=== PATIENT | female | born 1960 | race Caucasian/White ===

== ENCOUNTER 2019-06-30 09:04 | Emergency (ER) | payer OTHER ==
[2019-06-30 09:30] VITALS: BP 139/72
--- NOTE | 2019-06-30 10:10 | UC ---
Upper Extremity HPI - HPI Summary HPI Summary: 58-year-old woman comes in with a chief complaint of right elbow bursitis. Patient's had several days of her right elbow being irritated now it's swollen with redness. It hurts at rest but it's worse with palpation. Fevers or chills feels well otherwise. Patient's had this happen before but use the swelling is not as big. - History of Current Complaint Chief Complaint: UCUpperExtremity Stated Complaint: RT ELBOW PAIN Time Seen by Provider: 06/30/19 09:55 Pain Intensity: 9 - Allergies/Home Medications Allergies/Adverse Reactions: Allergies Allergy/AdvReac Type Severity Reaction Status Date / Time No Known Allergies Allergy Verified 06/30/19 09:28 Home Medications: Home Medications Atenolol TAB* [Tenormin TAB* 25 MG] 12.5 mg PO DAILY 06/30/19 [History Confirmed 06/30/19] DULoxetine DR CAP* [Cymbalta CAP*] 60 mg PO DAILY 06/30/19 [History Confirmed ] Ibuprofen TAB* [Motrin TAB* 400 MG] 400 mg PO Q6H PRN 06/30/19 [History Confirmed 06/30/19] Loratadine [Claritin 10 MG CAP] 10 mg PO DAILY 06/30/19 [History Confirmed 06/29] Omeprazole 20 mg PO BID 06/30/19 [History Confirmed 06/30/19] Pravastatin Sodium 10 mg PO EVERY OTHER DAY 06/30/19 [History Confirmed 06/30/19 ] Topiramate TAB(*) [Topamax 100 mg tab] 100 mg PO BEDTIME 06/30/19 [History Confirmed 06/30/19] Zolpidem TAB* [Ambien TAB*] 10 mg PO BEDTIME 06/30/19 [History Confirmed ] PMH/Surg Hx/FS Hx/Imm Hx Previously Healthy: Yes Endocrine History: Dyslipidemia Cardiovascular History: Hypertension GI/ History: Gastroesophageal Reflux - Surgical History Surgical History: Yes Surgery Procedure, Year, and Place: wisdom teeth. bilateral knee arthroscopy - Family History Known Family History: Positive: Non-Contributory - Social History Alcohol Use: None Substance Use Type: None Smoking Status (MU): Former Smoker When Did the Patient Quit Smoking/Using Tobacco: 2011 Review of Systems All Other Systems Reviewed And Are Negative: Yes Constitutional: Positive: Negative Skin: Positive: Other - SEE HPI Eyes: Positive: Negative ENT: Positive: Negative Respiratory: Positive: Negative Cardiovascular: Positive: Negative Gastrointestinal: Positive: Negative Motor: Positive: Negative Neurovascular: Positive: Negative Musculoskeletal: Positive: Negative Neurological/Mental Status: Positive: Negative Psychological: Positive: Negative Is Patient Immunocompromised?: No Physical Exam Triage Information Reviewed: Yes Appearance: Well-Appearing, No Pain Distress, Well-Nourished Vital Signs: Initial Vital Signs Temp 97.3 F 06/30/19 09:23 Pulse 62 06/30/19 09:23 Resp 17 06/30/19 09:23 BP 139/72 06/30/19 09:23 Pulse Ox 99 06/30/19 09:23 Vital Signs Reviewed: Yes Eye Exam: Normal Eyes: Positive: Conjunctiva Clear Neck: Positive: Supple Respiratory: Positive: No respiratory distress Musculoskeletal: Positive: Strength Intact, ROM Intact Neurological: Positive: Alert, Muscle Tone Normal Psychological: Positive: Age Appropriate Behavior Skin: Positive: Other - Right elbow bursa is swollen. It's erythematous over the bursa. No streaking. Upper Extremity Course/Dx - Course Course Of Treatment: Symptoms are consistent with right elbow bursitis. There is erythema over it's therefore at this time no plan to drain the bursa. We'll treat with Keflex. [facility] I wrote a hard copy prescription for Keflex 500 mg by mouth 4 times a day. Patient's, follow-up either with [facility] or [facility]opedics if not improved. She should get reevaluated sooner if worse or any questions or concerns. - Differential Dx/Diagnosis Provider Diagnosis: Bursitis of right elbow Discharge ED - Sign-Out/Discharge Documenting (check all that apply): Patient Departure All imaging exams completed and their final reports reviewed: No Studies - Discharge Plan Condition: Stable Disposition: HOME Patient Education Materials: Elbow Bursitis (ED) Referrals: Jace Skinner MD [Primary Care Provider] - Lucian Hess MD [Medical Doctor] - Additional Instructions: FOLLOW UP WITH YOUR PRIMARY CARE DOCTOR OR ORTHOPEDICS, DR HESS, IF NOT COMPLETELY IMPROVED. GET REEVALUATED SOONER IF NOT IMPROVED OR WORSE OR ANY QUESTIONS OR CONCERNS. - Billing Disposition and Condition Condition: STABLE Disposition: Home
[2019-06-30] MEDS ORDERED: Cephalexin CAP* 500 MG PO ONE ×2 (10:11→10:12)
== END 2019-06-30 10:31 | disposition home or self-care (01) ==
LOC: UCCORT 09:04
DX: M71.521 Other bursitis, not elsewhere classified, right elbow (principal); E78.5 Hyperlipidemia, unspecified; I10 Essential (primary) hypertension; K21.9 Gastro-esophageal reflux disease without esophagitis; Z79.899 Other long term (current) drug therapy; Z87.891 Personal history of nicotine dependence
CPT/HCPCS: 99212; A9270-GY; G0463